=== PATIENT | female | born 1990 | race Caucasian/White ===

== ENCOUNTER 2016-11-10 03:12 | Emergency (ER) | payer OTHER ==
[~2016-11-10] VITALS: Ht 167.6 cm; Wt 71.1 kg
[2016-11-10 03:42] LABS: HEMATOCRIT 46.9 % (36.0-46.0); MCH 30.3 PG (29.0-34.0); MCV 86.5 FL (83-99); MEAN PLAT.VOLUME 10.3 uM^3 (9.5-12.4); PLATELET COUNT 246 K/uL (156-360); RBC DIS.WIDTH-CV 12.1 % (11.8-14.6); RBC DIS.WIDTH-SD 38.8 % (39-53); RED BLOOD COUNT 5.42 M/uL (3.80-5.20)
[2016-11-10 03:52] LABS: CHLORIDE 103 mEq/L (99-109); POTASSIUM 4.7 mEq/L (3.7-5.4); SODIUM 138 mEq/L (136-147)
[2016-11-10 03:54] LABS: GLUCOSE 137 mg/dL (70-99)
[2016-11-10 03:55] LABS: ANION GAP 11 MEQ/L (2-14)
[2016-11-10 03:56] LABS: TOTAL BILIRUBIN 0.7 mg/dL (0.0-1.0)
[2016-11-10 03:58] LABS: ALKALINE PHOSPHATASE 65 IU/L (3-129); GFR ESTIMATE (CALCULATED) > 59 mL/min/
[2016-11-10 03:59] LABS: UREA NITROGEN (BUN) 17 mg/dL (9-23)
[2016-11-10 04:01] LABS: LIPASE 18 U/L (1.0-51.0)
[2016-11-10 04:08] LABS: QUANTITATIVE HCG < 4.0 MIU/ML
[2016-11-10 04:40] LABS: ADD MIUA? YES; BILIRUBIN NEGATIVE; BLOOD NEGATIVE; COLOR YELLOW ((YELLOW)); GLUCOSE (STRIP) NEGATIVE; KETONES 20; LEUKOCYTES NEGATIVE; NITRITE NEGATIVE; PROTEIN (STRIP) NEGATIVE; SPECIFIC GRAVITY 1.024 (1.000-1.030); UROBILINOGEN 0.2 MG/DL (0.2-1.0)
[2016-11-10 04:51] LABS: D-DIMER ELISA 3.18 mg/L FEU (< 0.57)
[2016-11-10 04:52] LABS: EPITHELIAL CELLS 1+ /HPF; RED BLOOD CELLS 0-5 /HPF (0-5); WHITE BLOOD CELLS 0-5 /HPF (0-5)
[2016-11-10 04:53] LABS: BACTERIA RARE /HPF; MUCUS TRACE /LPF; UCUL ADDED? NO
[2016-11-10] MEDS ORDERED: ZOFRAN8 MG PO (06:41)
[2016-11-10] MEDS ORDERED: BENTYL20 MG PO (06:41)
[2016-11-10 09:13] VITALS: BP 109/69
== END 2016-11-10 09:15 | disposition home or self-care (01) ==
LOC: EME 03:12
DX: B34.9 Viral infection, unspecified (principal); R11.2 Nausea with vomiting, unspecified; N83.202 Unspecified ovarian cyst, left side; R10.31 Right lower quadrant pain; R79.89 Other specified abnormal findings of blood chemistry; S80.12XA Contusion of left lower leg, initial encounter; Z72.0 Tobacco use
CPT/HCPCS: 71020; 74177; 78582; 80053; 81003; 83605; 83690; 84702; 85027; 85379; 93971; 99281; 99285; A9540; A9567; J1885; J7030